=== PATIENT | female | born 1975 | race Caucasian/White ===

== ENCOUNTER → 2016-10-19 | Outpatient (REF) | payer BC | LOC: M SFHCLERA 14:05 | PROVIDERS: ATTEND Physician Assistant | DX: R10.84 Generalized abdominal pain (principal) ==

== ENCOUNTER → 2016-10-19 | Outpatient (CLI) | payer BC ==
--- NOTE | 2016-10-19 15:29 | REP ---
RENAL AND BLADDER ULTRASOUND: Real-time sonographic evaluation of the kidneys is performed and demonstrates both kidneys to be normal in size and echotexture, right kidney measuring 11.0 x 5.1 x 4.3 cm and the left kidney 9.8 x 4.3 x 4.5 cm. There is no hydronephrosis bilaterally. No definite renal stones are seen. No gross mass is seen. The urinary bladder measures 7.6 x 8.5 x 3.7 cm. Total volume 154 mL. There is no mass or calculus identified. There are bilateral ureteral jets in the urinary bladder with Doppler color evaluation. IMPRESSION: Negative renal and bladder ultrasound. Signed by Manuel Carver MD 10/19/2016 05:27 P
== END ==
LOC: M LRY 14:05
PROVIDERS: ATTEND Physician Assistant
DX: R10.84 Generalized abdominal pain (principal); R10.9 Unspecified abdominal pain

== ENCOUNTER 2017-01-24 16:42 | Emergency (ER) | payer BC ==
[~2017-01-24] VITALS: Ht 162.6 cm; Wt 69.9 kg
[2017-01-24] MEDS ORDERED: KETOROLAC 30 MG/ML VIAL (J1885) IV ONE (19:15)
[2017-01-24 19:23] LABS: BASO # 0.1 K/mm3 (0.0-0.2); BASO % 0.6 % (0.0-1.0); EOS # 0.2 K/mm3 (0.0-0.50); EOS % 1.9 % (0.0-3.0); INR 0.95; LARGE UNSTAINED CELL # 0.2 K/mm3 (0.0-0.4); LARGE UNSTAINED CELL % 1.6 % (0.0-4.0); LYMPH # 2.8 K/mm3 (1.5-4.5); LYMPH % 21.4 % (24.0-44.0); MEAN CORPUSCULAR HEMOGLOBIN 31.6 pg (27.0-33.0); MEAN CORPUSCULAR HGB CONC 32.8 g/dl (32.0-36.5); MEAN CORPUSCULAR VOLUME 96.2 fl (80.0-96.0); MONO # 0.7 K/mm3 (0.0-0.8); MONO % 5.6 % (0.0-5.0); NEUTROPHILS # 8.5 K/mm3 (1.8-7.7); PLATELET COUNT, AUTOMATED 225 k/mm3 (150-450); RED CELL DISTRIBUTION WIDTH 13.5 % (11.5-14.5); WHITE BLOOD COUNT 12.4 K/mm3 (4.0-10.0)
[2017-01-24 19:35] LABS: ANION GAP 8 MEQ/L (8-16); BLOOD UREA NITROGEN 8 MG/DL (7-18); CALCIUM LEVEL 9.2 MG/DL (8.5-10.1); CARBON DIOXIDE LEVEL 27 MEQ/L (21-32); CHLORIDE LEVEL 107 MEQ/L (98-107); CREATININE FOR GFR 0.84 MG/DL (0.55-1.02); GLOMERULAR FILTRATION RATE > 60.0 (>58); GLUCOSE, FASTING 85 MG/DL (70-105); POTASSIUM SERUM 3.8 MEQ/L (3.5-5.1); SODIUM LEVEL 142 MEQ/L (136-145)
[2017-01-24] MEDS ORDERED: dexameTHASONE 20 MG/5 ML VIAL (J1100) IV ONE (20:30)
[2017-01-24] MEDS ORDERED: ISOVUE-370 76% 100ML VIAL (Q9967) As Ordered ONE (20:51)
--- NOTE | 2017-01-24 21:20 | REPUSA ---
CT angiogram of the chest Clinical statement: Chest pain and shortness of breath. Technique: Multiple axial CT images were obtained from the thoracic inlet through the upper abdomen a fter a bolus administration of nonionic intravenous contrast. Coronal and sagittal reconstructions we re also obtained. No comparison is available. Findings: The pulmonary arteries are well-opacified with contrast, with no intraluminal filling defec ts to suggest embolism. The thoracic aorta is unremarkable. Thyroid gland is within normal limits. Th ere is no thoracic lymphadenopathy. There are no pericardial or pleural effusions. The lungs are omar r. Limited imaging of the upper abdomen is unremarkable. There are no suspicious osseous lesions. Impression: Unremarkable CT examination of the chest. No evidence of pulmonary embolism.
[2017-01-24] MEDS ORDERED: KETO10TAB PO (21:30)
[2017-01-24] MEDS ORDERED: PRED20TA PO (21:30)
[2017-01-24 21:40] VITALS: BP 115/70
--- NOTE | 2017-01-24 22:08 | REP ---
CHEST, TWO VIEWS: COMPARISON: 07/01/2008 There is no evidence of acute infiltrate. No pleural effusion is seen. The heart is normal in size. The mediastinal silhouette is unremarkable. The visualized osseous structures are intact. IMPRESSION: No acute pulmonary disease. Signed by Manuel Carver MD 01/25/2017 03:21 P
--- NOTE | 2017-01-27 08:39 | ECGEPIP ---
Stationary ECG Study [facility] - ED Test Date: 2017-01-24 Pat Name: RAVI COATES Department: Room: - Gender: F Customer Sales Specialist: michelle : 1975 Requested By: BEE RAM Order Number: [id number] Reading MD: Awa Carbajal Measurements Intervals [place] Rate: 65 P: 55 FL: 128 QRS: 40 QRSD: 84 T: 39 QT: 410 QTc: 429 Interpretive Statements SINUS RHYTHM NO PRIOR Electronically Signed On 01-27-2017 8:39:02 EDT by Awa Carbajal
== END 2017-01-24 21:49 | disposition home or self-care (01) ==
LOC: EDBD 16:42 → M ED 17:53
DX: R07.81 Pleurodynia (principal)
CPT/HCPCS: 36415; 71020; 71275; 80048; 82550; 82553; 85025; 85610; 85730; 93005; 96374; 96375; 99284; J1100; J1885; Q9967

== ENCOUNTER → 2017-06-25 | Outpatient (REF) | payer BC ==
[~2017-06-25] MED LIST: KETO10TAB PO; PRED20TA PO
[2017-06-25 13:11] LABS: BASO % 0.6 % (0.0-1.0); EOS # 0.1 K/mm3 (0.0-0.50); EOS % 1.6 % (0.0-3.0); LARGE UNSTAINED CELL # 0.1 K/mm3 (0.0-0.4); LARGE UNSTAINED CELL % 1.9 % (0.0-4.0); LYMPH # 1.8 K/mm3 (1.5-4.5); LYMPH % 23.9 % (24.0-44.0); MEAN CORPUSCULAR HGB CONC 32.9 g/dl (32.0-36.5); MEAN CORPUSCULAR VOLUME 97.1 fl (80.0-96.0); MONO # 0.4 K/mm3 (0.0-0.8); MONO % 5.3 % (0.0-5.0); NEUTROPHILS % 66.7 % (36.0-66.0); PLATELET COUNT, AUTOMATED 236 k/mm3 (150-450); RED CELL DISTRIBUTION WIDTH 13.2 % (11.5-14.5); WHITE BLOOD COUNT 7.5 K/mm3 (4.0-10.0)
[2017-06-25 13:48] LABS: ERYTHROCYTE SEDIMENTATION RATE 4 mm/hr (0-20)
[2017-06-28 00:06] LABS: SJOGREN'S ANTI SS-A <0.2 AI (0.0-0.9); SJOGREN'S ANTI SS-B <0.2 AI (0.0-0.9)
== END ==
LOC: M LAB REF 12:40
PROVIDERS: ATTEND Internal Medicine Pulmonary Disease
DX: R07.9 Chest pain, unspecified (principal)